=== PATIENT | male | born 1940 | race Caucasian/White ===

== ENCOUNTER 2021-05-23 01:49 | Outpatient (CLI) | payer OTHER, SELFPAY ==
--- NOTE | 2021-05-23 09:15 | DI.MRI_ITS ---
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 Both noninfused and contrast i nfused sequences were performed. IV Contrast injected was 18 cc Dotarem. COMPARISON: No exams were available for comparison FINDINGS: CEREBRAL PARENCHYMA: No evidence of intracranial hemorrhage, mass effect nor shift of midline structu re. No extraaxial fluid collections. Ventricles are not enlarged nor shifted. There is no significant focal signal abnormality in the cerebellar hemispheres nor within the og, m idbrain, and thalami. There is abundant periventricular signal abnormality which is most probably consistent with chronic s mall vessel disease. These findings do not exhibit hemorrhage, enhancement, nor abnormal focal signa l on diffusion imaging to suggest restricted diffusion. There is no evidence of significant microhem orrhages on susceptibility weighted imaging There are no ring enhancing lesions in the brain. There is no abnormal meningeal enhancement. No evidence of dural venous sinus thrombosis. PITUITARY GLAND: No mass nor parasellar abnormality. No obvious abnormality in the cavernous sinuses. FLOW VOIDS: The expected flow void are noted. No evidence of obvious aneurysm nor obvious vascular ma lformation. PARANASAL SINUSES: The visualized paranasal sinuses appear unremarkable. ORBITS: No obvious abnormal findings. IMPRESSION: 1. There is abundant bilateral periventricular signal abnormality consistent with chronic small vesse l disease. No evidence of acute infarct. 2. No evidence of ring-enhancing lesions nor abnormal meningeal enhancement in the brain, as per requ est. DATA REPOSITORY:
[2021-05-23 09:54] LABS: HCT 44.5 % (40.0-50.0); HGB 14.2 g/dL (13.5-17.5); MCH 28.1 pg (27.0-33.0); MCHC 31.9 % (32.0-36.0); MCV 87.9 fL (80-95); MPV 9.7 fL (8.0-11.0); Nucleated RBC 0 %; RBC 5.06 10^6/uL (4.36-5.78); RDW 16.5 % (11.8-14.1); RDW-SD 52.8 fL
[2021-05-23 10:00] LABS: WBC 1.91 10^3/uL (4.4-10.8)
[2021-05-23] MEDS: Normal Saline Flush 10 ML SYR IVP (10:00)
[2021-05-23] MEDS: Gadoterate meglumine 20 ML VIAL 18 ML IVP (10:01)
[2021-05-23 10:11] LABS: Absolute Neutrophil Count 0.11 10^3/uL (1.2-6.7)
[2021-05-23 10:12] LABS: Absolute Eosinophil Count 0.02 10^3/uL (0.0-0.7); Absolute Monocyte Count 0.17 10^3/uL (0.1-0.8); Atypical Lymphocytes % 20; Diff Comment Manual Differential; RBC Morphology Normal
[2021-05-23 10:19] LABS: Platelet Count 30 10^3/uL (130-400)
[2021-05-23 10:36] LABS: Calcium 9.3 mg/dL (8.5-10.1)
[2021-05-23 10:37] LABS: ALT 51 U/L (16-63); AST 35 U/L (15-37); Albumin 3.2 g/dL (3.4-5.0); Alkaline Phosphatase 72 U/L (46-116); Anion Gap 9.7 mmol/L (3-11); BUN 17 mg/dL (7-18); Bilirubin, Total 0.8 mg/dL (0.2-1.0); CO2 27.3 mmol/L (21.0-32.0); CREATININE 1.5 mg/dL (0.70-1.30); Chloride 104 mmol/L (98-107); Estimated GFR 45.26 (mL/min/1.73m2); Magnesium 2.2 mg/dL (1.8-2.4); Potassium 4.1 mmol/L (3.5-5.1); Sodium 141 mmol/L (136-145); TSH 1.44 uIU/mL (0.36-3.74)
[2021-05-23 10:38] LABS: FREE T4 1.16 ng/dL (0.76-1.46)
[2021-05-23 11:17] LABS: Glucose 126 mg/dL (74-106)
== END 2021-05-23 02:09 ==
PROVIDERS: Visit Provider Internal Medicine Medical Oncology
DX: C78.2 Secondary malignant neoplasm of pleura (principal); C34.92 Malignant neoplasm of unspecified part of left bronchus or lung; I67.89 Other cerebrovascular disease
CPT/HCPCS: 70553; 80053; 83735; 84439; 84443; 85025

== ENCOUNTER 2021-05-30 16:50 | Outpatient (REF) | payer OTHER, SELFPAY ==
[2021-05-30 11:02] LABS: Abs Immature Grans 0.01 10^3/uL (0.0-0.06); Absolute Basophil Count 0.01 10^3/uL (0.0-0.2); Absolute Eosinophil Count 0.01 10^3/uL (0.0-0.7); Absolute Lymphocyte Count 1.49 10^3/uL (1.2-3.4); Absolute Monocyte Count 0.71 10^3/uL (0.1-0.8); Basophils % 0.2; Eosinophils % 0.2; HCT 41.3 % (40.0-50.0); HGB 13.3 g/dL (13.5-17.5); Immature Grans % 0.2; MCH 27.9 pg (27.0-33.0); MCHC 32.2 % (32.0-36.0); MCV 86.8 fL (80-95); Monocytes % 17.6; Neutrophils % 44.8; Nucleated RBC 0 %; RBC 4.76 10^6/uL (4.36-5.78); RDW 16.1 % (11.8-14.1); RDW-SD 50.4 fL; WBC 4.03 10^3/uL (4.4-10.8)
[2021-05-30 11:03] LABS: Absolute Neutrophil Count 1.81 10^3/uL (1.2-6.7)
[2021-05-30 11:17] LABS: Platelet Count 59 10^3/uL (130-400)
[2021-05-30 11:34] LABS: ALT 69 U/L (16-63); AST 60 U/L (15-37); Albumin 3.3 g/dL (3.4-5.0); Alkaline Phosphatase 76 U/L (46-116); Anion Gap 8.5 mmol/L (3-11); BUN 15 mg/dL (7-18); Bilirubin, Total 0.5 mg/dL (0.2-1.0); CO2 27.5 mmol/L (21.0-32.0); CREATININE 1.1 mg/dL (0.70-1.30); Calcium 9.1 mg/dL (8.5-10.1); Chloride 104 mmol/L (98-107); FREE T4 1.08 ng/dL (0.76-1.46); Glucose 120 mg/dL (74-106); Magnesium 2.3 mg/dL (1.8-2.4); Potassium 4.2 mmol/L (3.5-5.1); Sodium 140 mmol/L (136-145); TSH 1.46 uIU/mL (0.36-3.74); Total Protein 7.2 g/dL (6.4-8.2)
== END 2021-05-30 16:51 | disposition home or self-care (01) ==
LOC: LBN 16:50
PROVIDERS: Visit Provider Internal Medicine Medical Oncology
DX: C78.2 Secondary malignant neoplasm of pleura (principal); C34.92 Malignant neoplasm of unspecified part of left bronchus or lung
CPT/HCPCS: 80053; 83735; 84439; 84443; 85025

== ENCOUNTER 2021-06-06 01:42 | Outpatient (RCR) | payer OTHER, SELFPAY ==
[2021-05-09 09:18] LABS: Abs Immature Grans 0.02 10^3/uL (0.0-0.06); Absolute Basophil Count 0.02 10^3/uL (0.0-0.2); Absolute Eosinophil Count 0.03 10^3/uL (0.0-0.7); Absolute Lymphocyte Count 1.74 10^3/uL (1.2-3.4); Absolute Monocyte Count 0.58 10^3/uL (0.1-0.8); Absolute Neutrophil Count 5.34 10^3/uL (1.2-6.7); Basophils % 0.3; Eosinophils % 0.4; HCT 48.1 % (40.0-50.0); HGB 14.9 g/dL (13.5-17.5); Immature Grans % 0.3; Lymphocytes % 22.5; MCH 27.4 pg (27.0-33.0); MCV 88.6 fL (80-95); Monocytes % 7.5; Nucleated RBC 0 %; Platelet Count 126 10^3/uL (130-400); RBC 5.43 10^6/uL (4.36-5.78); RDW 18.3 % (11.8-14.1); RDW-SD 56.5 fL; WBC 7.73 10^3/uL (4.4-10.8)
[2021-05-09 09:42] LABS: ALT 105 U/L (16-63); AST 69 U/L (15-37); Albumin 3.4 g/dL (3.4-5.0); Alkaline Phosphatase 69 U/L (46-116); Anion Gap 11.1 mmol/L (3-11); BUN 21 mg/dL (7-18); Bilirubin, Total 0.6 mg/dL (0.2-1.0); CO2 24.9 mmol/L (21.0-32.0); CREATININE 1.2 mg/dL (0.70-1.30); Calcium 9.2 mg/dL (8.5-10.1); Chloride 106 mmol/L (98-107); Estimated GFR 58.56 (mL/min/1.73m2); FREE T4 0.95 ng/dL (0.76-1.46); Glucose 215 mg/dL (74-106); Magnesium 2.2 mg/dL (1.8-2.4); Potassium 3.8 mmol/L (3.5-5.1); Sodium 142 mmol/L (136-145); TSH 2.12 uIU/mL (0.36-3.74); Total Protein 7.8 g/dL (6.4-8.2)
[2021-05-10 10:20] LABS: Hepatitis B Surface Ag Negative (Negative)
[2021-05-10 10:41] LABS: HBs Antibody, Quant 4.5 mIU/mL (See Note); Hepatitis B Surface Ab Negative (See Note)
[2021-05-10 11:29] LABS: Hepatitis C Ab w Rflx HCV PCR Negative (Negative)
[2021-06-06 14:05] LABS: Abs Immature Grans 0.03 10^3/uL (0.0-0.06); Absolute Basophil Count 0.04 10^3/uL (0.0-0.2); Absolute Lymphocyte Count 2.68 10^3/uL (1.2-3.4); Absolute Monocyte Count 1.17 10^3/uL (0.1-0.8); Absolute Neutrophil Count 2.47 10^3/uL (1.2-6.7); Basophils % 0.6; HCT 44.5 % (40.0-50.0); HGB 13.6 g/dL (13.5-17.5); Immature Grans % 0.5; Lymphocytes % 41.9; MCH 27.3 pg (27.0-33.0); MCHC 30.6 % (32.0-36.0); MCV 89.2 fL (80-95); MPV 9.6 fL (8.0-11.0); Monocytes % 18.3; Neutrophils % 38.7; Nucleated RBC 0 %; Platelet Count 130 10^3/uL (130-400); RBC 4.99 10^6/uL (4.36-5.78); RDW 17.2 % (11.8-14.1); WBC 6.39 10^3/uL (4.4-10.8)
[2021-06-06 14:38] LABS: ALT 72 U/L (16-63); AST 55 U/L (15-37); Albumin 3.7 g/dL (3.4-5.0); Alkaline Phosphatase 74 U/L (46-116); Anion Gap 11.4 mmol/L (3-11); BUN 15 mg/dL (7-18); Bilirubin, Total 0.5 mg/dL (0.2-1.0); CO2 24.6 mmol/L (21.0-32.0); CREATININE 1.2 mg/dL (0.70-1.30); Calcium 9.4 mg/dL (8.5-10.1); Chloride 104 mmol/L (98-107); Estimated GFR 58.56 (mL/min/1.73m2); FREE T4 0.98 ng/dL (0.76-1.46); Glucose 106 mg/dL (74-106); Magnesium 2.1 mg/dL (1.8-2.4); Sodium 140 mmol/L (136-145); TSH 1.99 uIU/mL (0.36-3.74); Total Protein 8.4 g/dL (6.4-8.2)
== END 2021-06-07 23:59 | disposition home or self-care (01) ==
LOC: INF 01:42
PROVIDERS: Visit Provider Internal Medicine Medical Oncology
DX: C78.2 Secondary malignant neoplasm of pleura (principal); C34.92 Malignant neoplasm of unspecified part of left bronchus or lung
CPT/HCPCS: 36415; 80053; 86706; 86803; 87340; 83735; 84439; 84443; 85025

== ENCOUNTER 2021-06-27 13:19 | Outpatient (REF) | payer OTHER, SELFPAY ==
[2021-06-27 10:32] LABS: Abs Immature Grans 0.05 10^3/uL (0.0-0.06); Absolute Basophil Count 0.02 10^3/uL (0.0-0.2); Absolute Eosinophil Count 0.01 10^3/uL (0.0-0.7); Absolute Monocyte Count 0.89 10^3/uL (0.1-0.8); Absolute Neutrophil Count 2.58 10^3/uL (1.2-6.7); Basophils % 0.4; Eosinophils % 0.2; HCT 37.5 % (40.0-50.0); Immature Grans % 0.9; Lymphocytes % 33.6; MCH 28.3 pg (27.0-33.0); MCV 88.4 fL (80-95); MPV 10.3 fL (8.0-11.0); Monocytes % 16.6; Neutrophils % 48.3; Nucleated RBC 0 %; RBC 4.24 10^6/uL (4.36-5.78); RDW 17.9 % (11.8-14.1); RDW-SD 55.8 fL; WBC 5.35 10^3/uL (4.4-10.8)
[2021-06-27 10:41] LABS: Platelet Count 67 10^3/uL (130-400)
[2021-06-27 10:56] LABS: ALT 54 U/L (16-63); AST 43 U/L (15-37); Albumin 3.4 g/dL (3.4-5.0); Alkaline Phosphatase 70 U/L (46-116); Anion Gap 8.7 mmol/L (3-11); BUN 12 mg/dL (7-18); Bilirubin, Total 0.4 mg/dL (0.2-1.0); CO2 27.3 mmol/L (21.0-32.0); CREATININE 1.1 mg/dL (0.70-1.30); Calcium 9.1 mg/dL (8.5-10.1); Chloride 104 mmol/L (98-107); FREE T4 0.96 ng/dL (0.76-1.46); Glucose 118 mg/dL (74-106); Magnesium 2.1 mg/dL (1.8-2.4); Potassium 4.2 mmol/L (3.5-5.1); Sodium 140 mmol/L (136-145); TSH 0.88 uIU/mL (0.36-3.74); Total Protein 7.5 g/dL (6.4-8.2)
== END 2021-06-27 13:20 | disposition home or self-care (01) ==
LOC: LBN 13:19
PROVIDERS: Visit Provider Internal Medicine Medical Oncology
DX: C34.92 Malignant neoplasm of unspecified part of left bronchus or lung (principal); C78.2 Secondary malignant neoplasm of pleura
CPT/HCPCS: 80053; 83735; 84439; 84443; 85025

== ENCOUNTER 2021-07-04 03:28 | Outpatient (RCR) | payer OTHER, SELFPAY ==
[2021-07-04 08:56] LABS: Abs Immature Grans 0.01 10^3/uL (0.0-0.06); Absolute Basophil Count 0.03 10^3/uL (0.0-0.2); Absolute Eosinophil Count 0.01 10^3/uL (0.0-0.7); Absolute Monocyte Count 0.76 10^3/uL (0.1-0.8); Absolute Neutrophil Count 2.81 10^3/uL (1.2-6.7); Basophils % 0.5; Eosinophils % 0.2; HCT 39.3 % (40.0-50.0); HGB 12.3 g/dL (13.5-17.5); Immature Grans % 0.2; Lymphocytes % 36.7; MCHC 31.3 % (32.0-36.0); MCV 89.5 fL (80-95); MPV 9.7 fL (8.0-11.0); Monocytes % 13.3; Neutrophils % 49.1; Nucleated RBC 0 %; Platelet Count 104 10^3/uL (130-400); RBC 4.39 10^6/uL (4.36-5.78); RDW 18.6 % (11.8-14.1); RDW-SD 59.1 fL; WBC 5.72 10^3/uL (4.4-10.8)
[2021-07-04 09:16] LABS: ALT 51 U/L (16-63); AST 42 U/L (15-37); Albumin 3.4 g/dL (3.4-5.0); Alkaline Phosphatase 70 U/L (46-116); Anion Gap 15.2 mmol/L (3-11); BUN 11 mg/dL (7-18); Bilirubin, Total 0.5 mg/dL (0.2-1.0); CO2 19.8 mmol/L (21.0-32.0); CREATININE 1.3 mg/dL (0.70-1.30); Chloride 102 mmol/L (98-107); Estimated GFR 53.39 (mL/min/1.73m2); Glucose 201 mg/dL (74-106); Magnesium 2.2 mg/dL (1.8-2.4); Potassium 3.7 mmol/L (3.5-5.1); Sodium 137 mmol/L (136-145); TSH 1.36 uIU/mL (0.36-3.74); Total Protein 7.8 g/dL (6.4-8.2)
== END 2021-07-08 23:59 | disposition home or self-care (01) ==
LOC: INF 03:28
PROVIDERS: Visit Provider Internal Medicine Medical Oncology
DX: C78.2 Secondary malignant neoplasm of pleura (principal); C34.92 Malignant neoplasm of unspecified part of left bronchus or lung
CPT/HCPCS: 36415; 80053; 83735; 84439; 84443; 85025

== ENCOUNTER 2021-08-08 01:14 | Outpatient (RCR) | payer OTHER, SELFPAY ==
[2021-07-27 08:10] LABS: Abs Immature Grans 0.02 10^3/uL (0.0-0.06); Absolute Basophil Count 0.02 10^3/uL (0.0-0.2); Absolute Eosinophil Count 0.02 10^3/uL (0.0-0.7); Absolute Lymphocyte Count 2.04 10^3/uL (1.2-3.4); Absolute Monocyte Count 0.66 10^3/uL (0.1-0.8); Absolute Neutrophil Count 1.96 10^3/uL (1.2-6.7); Basophils % 0.4; Eosinophils % 0.4; HCT 37.4 % (40.0-50.0); HGB 11.4 g/dL (13.5-17.5); Immature Grans % 0.4; Lymphocytes % 43.2; MCH 28.4 pg (27.0-33.0); MCHC 30.5 % (32.0-36.0); MPV 10.8 fL (8.0-11.0); Neutrophils % 41.6; Nucleated RBC 0 %; RBC 4.02 10^6/uL (4.36-5.78); RDW 20.1 % (11.8-14.1); RDW-SD 66.5 fL; WBC 4.72 10^3/uL (4.4-10.8)
[2021-07-27 08:27] LABS: Anisocytosis 2+; Diff Comment Diff Reviewed; Platelet Count 48 10^3/uL (130-400); Polychromasia Present
[2021-07-27 08:28] LABS: Poikilocytes 1+
[2021-07-27 08:30] LABS: ALT 56 U/L (16-63); AST 49 U/L (15-37); Albumin 3.4 g/dL (3.4-5.0); Alkaline Phosphatase 78 U/L (46-116); Anion Gap 11.6 mmol/L (3-11); BUN 15 mg/dL (7-18); Bilirubin, Total 0.5 mg/dL (0.2-1.0); CO2 24.4 mmol/L (21.0-32.0); CREATININE 1.3 mg/dL (0.70-1.30); Calcium 9.1 mg/dL (8.5-10.1); Chloride 104 mmol/L (98-107); Estimated GFR 53.39 (mL/min/1.73m2); FREE T4 0.86 ng/dL (0.76-1.46); Glucose 225 mg/dL (74-106); Magnesium 1.8 mg/dL (1.8-2.4); Sodium 140 mmol/L (136-145); TSH 1.06 uIU/mL (0.36-3.74); Total Protein 7.6 g/dL (6.4-8.2)
[2021-08-08 08:33] LABS: Abs Immature Grans 0.01 10^3/uL (0.0-0.06); Absolute Basophil Count 0.01 10^3/uL (0.0-0.2); Absolute Eosinophil Count 0.06 10^3/uL (0.0-0.7); Absolute Lymphocyte Count 1.78 10^3/uL (1.2-3.4); Absolute Monocyte Count 0.91 10^3/uL (0.1-0.8); Absolute Neutrophil Count 2.22 10^3/uL (1.2-6.7); Basophils % 0.2; Eosinophils % 1.2; HCT 37.6 % (40.0-50.0); HGB 11.5 g/dL (13.5-17.5); Immature Grans % 0.2; Lymphocytes % 35.7; MCHC 30.6 % (32.0-36.0); MCV 94.9 fL (80-95); MPV 10.6 fL (8.0-11.0); Monocytes % 18.2; Neutrophils % 44.5; Nucleated RBC 0 %; RBC 3.96 10^6/uL (4.36-5.78); RDW 21.2 % (11.8-14.1); RDW-SD 73.4 fL; WBC 4.99 10^3/uL (4.4-10.8)
[2021-08-08 08:52] LABS: Anisocytosis 2+; Diff Comment Diff Reviewed; Platelet Count 79 10^3/uL (130-400); Polychromasia Present
[2021-08-08 08:53] LABS: Poikilocytes 1+
[2021-08-08 09:05] LABS: ALT 49 U/L (16-63); AST 45 U/L (15-37); Albumin 3.6 g/dL (3.4-5.0); Alkaline Phosphatase 72 U/L (46-116); Anion Gap 12.4 mmol/L (3-11); BUN 15 mg/dL (7-18); Bilirubin, Total 0.6 mg/dL (0.2-1.0); CO2 22.6 mmol/L (21.0-32.0); CREATININE 1.1 mg/dL (0.70-1.30); Calcium 9.2 mg/dL (8.5-10.1); Chloride 103 mmol/L (98-107); FREE T4 0.95 ng/dL (0.76-1.46); Glucose 114 mg/dL (74-106); Magnesium 1.8 mg/dL (1.8-2.4); Potassium 4.4 mmol/L (3.5-5.1); Sodium 138 mmol/L (136-145); TSH 1.29 uIU/mL (0.36-3.74)
== END 2021-08-08 23:59 | disposition home or self-care (01) ==
LOC: INF 01:14
PROVIDERS: Visit Provider Internal Medicine Medical Oncology
DX: C34.92 Malignant neoplasm of unspecified part of left bronchus or lung (principal); C78.2 Secondary malignant neoplasm of pleura
CPT/HCPCS: 36415; 80053; 83735; 84439; 84443; 85025

== ENCOUNTER 2021-08-29 02:01 | Outpatient (RCR) | payer OTHER, SELFPAY ==
[2021-08-29 09:15] LABS: Abs Immature Grans 0.01 10^3/uL (0.0-0.06); Absolute Basophil Count 0.02 10^3/uL (0.0-0.2); Absolute Eosinophil Count 0.12 10^3/uL (0.0-0.7); Absolute Lymphocyte Count 1.63 10^3/uL (1.2-3.4); Absolute Monocyte Count 0.44 10^3/uL (0.1-0.8); Absolute Neutrophil Count 2.45 10^3/uL (1.2-6.7); Basophils % 0.4; Eosinophils % 2.6; HCT 39.9 % (40.0-50.0); HGB 12.2 g/dL (13.5-17.5); Immature Grans % 0.2; Lymphocytes % 34.9; MCH 29.3 pg (27.0-33.0); MCHC 30.6 % (32.0-36.0); MCV 95.7 fL (80-95); MPV 10.5 fL (8.0-11.0); Monocytes % 9.4; Neutrophils % 52.5; Nucleated RBC 0 %; RBC 4.17 10^6/uL (4.36-5.78); RDW-SD 66.8 fL; WBC 4.67 10^3/uL (4.4-10.8)
[2021-08-29 09:32] LABS: Diff Comment Diff Reviewed; Platelet Count 91 10^3/uL (130-400)
[2021-08-29 09:33] LABS: Poikilocytes 1+
[2021-08-29 09:39] LABS: ALT 54 U/L (16-63); AST 50 U/L (15-37); Albumin 3.6 g/dL (3.4-5.0); Alkaline Phosphatase 75 U/L (46-116); Anion Gap 11.9 mmol/L (3-11); BUN 14 mg/dL (7-18); Bilirubin, Total 0.6 mg/dL (0.2-1.0); CO2 23.1 mmol/L (21.0-32.0); CREATININE 1.3 mg/dL (0.70-1.30); Calcium 9.4 mg/dL (8.5-10.1); Chloride 104 mmol/L (98-107); Estimated GFR 53.39 (mL/min/1.73m2); FREE T4 0.81 ng/dL (0.76-1.46); Glucose 176 mg/dL (74-106); Magnesium 2.1 mg/dL (1.8-2.4); Sodium 139 mmol/L (136-145); TSH 2.36 uIU/mL (0.36-3.74)
== END 2021-09-05 23:59 | disposition home or self-care (01) ==
LOC: INF 02:01
PROVIDERS: Visit Provider Internal Medicine Medical Oncology
DX: C78.2 Secondary malignant neoplasm of pleura (principal); C34.92 Malignant neoplasm of unspecified part of left bronchus or lung
CPT/HCPCS: 36415; 80053; 83735; 84439; 84443; 85025

== ENCOUNTER 2021-09-26 08:13 | Outpatient (RCR) | payer OTHER, SELFPAY ==
[2021-09-26 08:38] LABS: Abs Immature Grans 0.01 10^3/uL (0.0-0.06); Absolute Basophil Count 0.03 10^3/uL (0.0-0.2); Absolute Eosinophil Count 0.09 10^3/uL (0.0-0.7); Absolute Lymphocyte Count 2.14 10^3/uL (1.2-3.4); Absolute Monocyte Count 0.76 10^3/uL (0.1-0.8); Absolute Neutrophil Count 3.42 10^3/uL (1.2-6.7); Basophils % 0.5; Eosinophils % 1.4; HCT 43.7 % (40.0-50.0); HGB 13.5 g/dL (13.5-17.5); Immature Grans % 0.2; Lymphocytes % 33.2; MCH 29.3 pg (27.0-33.0); MCHC 30.9 % (32.0-36.0); MCV 94.8 fL (80-95); MPV 10.2 fL (8.0-11.0); Monocytes % 11.8; Neutrophils % 52.9; Nucleated RBC 0 %; RBC 4.61 10^6/uL (4.36-5.78); RDW 15.9 % (11.8-14.1); WBC 6.45 10^3/uL (4.4-10.8)
[2021-09-26 08:50] LABS: Platelet Count 89 10^3/uL (130-400)
[2021-09-26 09:05] LABS: ALT 50 U/L (16-63); AST 38 U/L (15-37); Albumin 3.9 g/dL (3.4-5.0); Alkaline Phosphatase 80 U/L (46-116); Anion Gap 9.3 mmol/L (3-11); BUN 20 mg/dL (7-18); Bilirubin, Total 0.6 mg/dL (0.2-1.0); CO2 25.7 mmol/L (21.0-32.0); CREATININE 1.3 mg/dL (0.70-1.30); Calcium 9.6 mg/dL (8.5-10.1); Chloride 104 mmol/L (98-107); Estimated GFR 53.25 (mL/min/1.73m2); Glucose 119 mg/dL (74-106); Magnesium 2.1 mg/dL (1.8-2.4); Potassium 4.2 mmol/L (3.5-5.1); Sodium 139 mmol/L (136-145); TSH 1.22 uIU/mL (0.36-3.74); Total Protein 8.3 g/dL (6.4-8.2)
== END 2021-10-06 23:59 | disposition home or self-care (01) ==
LOC: INF 08:13
PROVIDERS: Visit Provider Internal Medicine Medical Oncology
DX: C78.2 Secondary malignant neoplasm of pleura (principal); C34.92 Malignant neoplasm of unspecified part of left bronchus or lung
CPT/HCPCS: 36415; 80053; 83735; 84439; 84443; 85025

== ENCOUNTER 2021-10-31 04:12 | Outpatient (RCR) | payer OTHER, SELFPAY ==
[2021-10-10 12:05] LABS: Abs Immature Grans 0.01 10^3/uL (0.0-0.06); Absolute Basophil Count 0.03 10^3/uL (0.0-0.2); Absolute Eosinophil Count 0.07 10^3/uL (0.0-0.7); Absolute Lymphocyte Count 1.38 10^3/uL (1.2-3.4); Absolute Monocyte Count 0.45 10^3/uL (0.1-0.8); Absolute Neutrophil Count 3.74 10^3/uL (1.2-6.7); Basophils % 0.5; Eosinophils % 1.2; HCT 41.1 % (40.0-50.0); Immature Grans % 0.2; Lymphocytes % 24.3; MCH 29.4 pg (27.0-33.0); MCHC 31.6 % (32.0-36.0); Monocytes % 7.9; Neutrophils % 65.9; Nucleated RBC 0 %; RBC 4.42 10^6/uL (4.36-5.78); RDW 15.6 % (11.8-14.1); RDW-SD 53.5 fL; WBC 5.68 10^3/uL (4.4-10.8)
[2021-10-10 12:22] LABS: Platelet Count 87 10^3/uL (130-400)
[2021-10-10 12:32] LABS: ALT 52 U/L (16-63); AST 41 U/L (15-37); Albumin 3.6 g/dL (3.4-5.0); Alkaline Phosphatase 75 U/L (46-116); BUN 14 mg/dL (7-18); Bilirubin, Total 0.5 mg/dL (0.2-1.0); CREATININE 1.2 mg/dL (0.70-1.30); Chloride 102 mmol/L (98-107); FREE T4 0.93 ng/dL (0.76-1.46); Glucose 195 mg/dL (74-106); Magnesium 1.9 mg/dL (1.8-2.4); Potassium 3.8 mmol/L (3.5-5.1); Sodium 136 mmol/L (136-145); TSH 1.04 uIU/mL (0.36-3.74); Total Protein 7.7 g/dL (6.4-8.2)
[2021-10-10 12:46] LABS: Calcium 9.2 mg/dL (8.5-10.1)
[2021-10-31 10:16] LABS: Abs Immature Grans 0.01 10^3/uL (0.0-0.06); Absolute Basophil Count 0.01 10^3/uL (0.0-0.2); Absolute Eosinophil Count 0.03 10^3/uL (0.0-0.7); Absolute Lymphocyte Count 1.43 10^3/uL (1.2-3.4); Absolute Monocyte Count 0.73 10^3/uL (0.1-0.8); Absolute Neutrophil Count 2.16 10^3/uL (1.2-6.7); Basophils % 0.2; Eosinophils % 0.7; HCT 40.9 % (40.0-50.0); HGB 12.9 g/dL (13.5-17.5); Immature Grans % 0.2; Lymphocytes % 32.7; MCHC 31.5 % (32.0-36.0); MCV 91.9 fL (80-95); MPV 9.5 fL (8.0-11.0); Monocytes % 16.7; Neutrophils % 49.5; Platelet Count 51 10^3/uL (130-400); RBC 4.45 10^6/uL (4.36-5.78); RDW 15.8 % (11.8-14.1); RDW-SD 52.6 fL; WBC 4.37 10^3/uL (4.4-10.8)
[2021-10-31 10:36] LABS: ALT 55 U/L (16-63); AST 49 U/L (15-37); Albumin 3.4 g/dL (3.4-5.0); Alkaline Phosphatase 86 U/L (46-116); Anion Gap 7.7 mmol/L (3-11); BUN 17 mg/dL (7-18); Bilirubin, Total 0.6 mg/dL (0.2-1.0); CO2 27.3 mmol/L (21.0-32.0); CREATININE 1.4 mg/dL (0.70-1.30); Calcium 9.4 mg/dL (8.5-10.1); Chloride 102 mmol/L (98-107); Estimated GFR 48.89 (mL/min/1.73m2); FREE T4 0.86 ng/dL (0.76-1.46); Glucose 140 mg/dL (74-106); Magnesium 2.2 mg/dL (1.8-2.4); Potassium 3.9 mmol/L (3.5-5.1); Sodium 137 mmol/L (136-145); TSH 0.96 uIU/mL (0.36-3.74); Total Protein 7.7 g/dL (6.4-8.2)
== END 2021-11-05 23:59 | disposition home or self-care (01) ==
LOC: INF 04:12
PROVIDERS: Visit Provider Internal Medicine Medical Oncology
DX: C78.2 Secondary malignant neoplasm of pleura (principal); C34.92 Malignant neoplasm of unspecified part of left bronchus or lung
CPT/HCPCS: 36415; 80053; 83735; 84439; 84443; 85025

== ENCOUNTER → 2021-11-17 13:01 | Outpatient (CLI) | payer OTHER, SELFPAY ==
--- NOTE | 2021-11-17 13:53 | DI.RAD_ITS ---
Exam(s) XR CHEST 2V PA LATERAL EXAM: XR CHEST 2V PA LATERAL CLINICAL HISTORY: LUNG CA, C34.92, NEW DYSPNEA AND RIGHT-SIDED CHEST DISCOMFORT, ? PNEUMONIA TECHNIQUE: COMPARISON: CT CT CHEST W from 06/17/[address] CHEST/ABD/PEL W from 08/15/2021 FINDINGS: The heart is not enlarged. There is pleural blunting at the lung bases bilaterally, more prominent o n the right than on prior CT examination of August 15. Additionally, there are areas of increased radiodensity in the right mid lung and right lung base, I am uncertain whether these represent pleur al fluid or intrapulmonary areas of consolidation. Additional evaluation with chest CT recommended to assess intrapulmonary versus pleural changes. IMPRESSION: RADIATION DOSE DELIVERED: Total DLP
== END ==
PROVIDERS: Visit Provider Internal Medicine Medical Oncology
DX: C34.92 Malignant neoplasm of unspecified part of left bronchus or lung (principal); R06.09 Other forms of dyspnea; R07.89 Other chest pain; R91.8 Other nonspecific abnormal finding of lung field; Z86.16 Personal history of COVID-19
CPT/HCPCS: 71046

== ENCOUNTER 2021-11-21 12:45 | Outpatient (RCR) | payer OTHER, SELFPAY ==
[2021-11-21 13:13] LABS: Abs Immature Grans 0.02 10^3/uL (0.0-0.06); Absolute Basophil Count 0.02 10^3/uL (0.0-0.2); Absolute Eosinophil Count 0.11 10^3/uL (0.0-0.7); Absolute Lymphocyte Count 1.14 10^3/uL (1.2-3.4); Absolute Monocyte Count 0.87 10^3/uL (0.1-0.8); Absolute Neutrophil Count 2.92 10^3/uL (1.2-6.7); Basophils % 0.4; Eosinophils % 2.2; HCT 34.6 % (40.0-50.0); HGB 10.7 g/dL (13.5-17.5); Immature Grans % 0.4; Lymphocytes % 22.4; MCH 28.2 pg (27.0-33.0); MCHC 30.9 % (32.0-36.0); MCV 91 fL (80-95); MPV 10.3 fL (8.0-11.0); Monocytes % 17.1; Neutrophils % 57.5; Platelet Count 96 10^3/uL (130-400); RDW 16.6 % (11.8-14.1); RDW-SD 55.5 fL; WBC 5.08 10^3/uL (4.4-10.8)
[2021-11-21 13:40] LABS: ALT 36 U/L (16-63); AST 29 U/L (15-37); Albumin 2.9 g/dL (3.4-5.0); Alkaline Phosphatase 71 U/L (46-116); Anion Gap 10.2 mmol/L (3-11); BUN 15 mg/dL (7-18); Bilirubin, Total 0.6 mg/dL (0.2-1.0); CO2 25.8 mmol/L (21.0-32.0); CREATININE 1.2 mg/dL (0.70-1.30); Calcium 8.9 mg/dL (8.5-10.1); Chloride 103 mmol/L (98-107); FREE T4 1.04 ng/dL (0.76-1.46); Glucose 102 mg/dL (74-106); Potassium 3.8 mmol/L (3.5-5.1); Sodium 139 mmol/L (136-145); TSH 1.07 uIU/mL (0.36-3.74); Total Protein 7.9 g/dL (6.4-8.2)
== END 2021-12-06 23:59 | disposition home or self-care (01) ==
LOC: INF 12:45
PROVIDERS: Visit Provider Internal Medicine Medical Oncology
DX: C78.2 Secondary malignant neoplasm of pleura (principal); C34.92 Malignant neoplasm of unspecified part of left bronchus or lung
CPT/HCPCS: 36415; 80053; 84439; 84443; 85025

== ENCOUNTER 2021-11-26 15:02 | Emergency (ER) | payer OTHER, SELFPAY ==
[2021-11-26 15:45] VITALS: BP 126/62; PULSE 99; RESP 16; TEMP 36.8; O2SAT 94
[2021-11-26 15:54] VITALS: RESP 18
[2021-11-26 16:29] LABS: Abs Immature Grans 0.02 10^3/uL (0.0-0.06); Absolute Basophil Count 0.01 10^3/uL (0.0-0.2); Absolute Eosinophil Count 0.04 10^3/uL (0.0-0.7); Absolute Lymphocyte Count 1.23 10^3/uL (1.2-3.4); Absolute Monocyte Count 0.07 10^3/uL (0.1-0.8); Absolute Neutrophil Count 3.23 10^3/uL (1.2-6.7); Basophils % 0.2; Eosinophils % 0.9; HCT 33.4 % (40.0-50.0); HGB 10.5 g/dL (13.5-17.5); Immature Grans % 0.4; Lymphocytes % 26.7; MCH 28.1 pg (27.0-33.0); MCHC 31.4 % (32.0-36.0); MCV 89 fL (80-95); MPV 9.4 fL (8.0-11.0); Monocytes % 1.5; Neutrophils % 70.3; Platelet Count 57 10^3/uL (130-400); RBC 3.74 10^6/uL (4.36-5.78); RDW 16.7 % (11.8-14.1); RDW-SD 54.4 fL
[2021-11-26] MEDS: Ondansetron 4 MG/2 ML VIAL IVP (16:30)
[2021-11-26 16:47] LABS: ALT 44 U/L (16-63); AST 42 U/L (15-37); Albumin 2.9 g/dL (3.4-5.0); Alkaline Phosphatase 71 U/L (46-116); Anion Gap 11.1 mmol/L (3-11); BUN 18 mg/dL (7-18); Bilirubin, Total 0.8 mg/dL (0.2-1.0); CO2 21.9 mmol/L (21.0-32.0); CREATININE 1.2 mg/dL (0.70-1.30); Chloride 102 mmol/L (98-107); Glucose 115 mg/dL (74-106); Magnesium 2.3 mg/dL (1.8-2.4); Potassium 4.2 mmol/L (3.5-5.1); Sodium 135 mmol/L (136-145); Total Protein 8.1 g/dL (6.4-8.2)
[2021-11-26 16:48] LABS: Lipase 69 U/L (73-393)
[2021-11-26] MEDS: Normal Saline 1,000 ML 1000 ML IV (17:28)
[2021-11-26] MEDS: Doxycycline Hyclate 100 MG CAP 200 MG PO (18:47)
--- NOTE | 2021-11-26 19:45 | ED.GENADUL_ITS ---
Discharge Plan Disposition Patient Disposition: HOME Condition: Improving Discharge Details Clinical Impression: Nausea & vomiting Primary Care Provider: Rhonda,Local ED Provider: Riaz Quiñonez Home Meds and New Rx's Prescriptions: New ondansetron 4 mg tablet,disintegrating 4 mg PO Q6H PRN (Reason: nausea and vomiting) Qty: 14 0RF Continued isosorbide mononitrate 30 mg Tablet Extended Release 24 Hr 30 mg PO DAILY AM metoprolol succinate 25 mg Tablet Extended Release 24 Hr 25 mg PO DAILY AM rosuvastatin 40 mg Tablet 40 mg PO DAILY prochlorperazine maleate [Compazine] 10 mg Tablet 10 mg PO PRN PRN aspirin 81 mg Tablet 81 mg PO DAILY AM Discharge Instructions Instructions: Acute Nausea and Vomiting (ED) Additional Instructions: At this time we are still pending outpatient stool specimen studies. Your nausea vomiting and diarrhea may be due to the recent antibiotics you are on or the new chemo treatments you have started. It is very important to stay well- hydrated and take antinausea medication as soon as you feel nauseous. If you have any new or worsening symptoms, fever that is persistent, or further concerns please return immediately to the emergency department for reassessment. Otherwise follow-up with your primary care provider or oncologist for further discussion if your symptoms do not improve. Referrals: Primary Care Provider [Outside] - 5 days (If not improving) Discharge Data Discharge Date/Time-TO BE ENTERED AT DEPARTURE: 11/26/21 20:11 Medical Decision Making Patient presenting to the emergency department for chief complaint of nausea vomiting and some intermittent diarrhea. Patient has been undergoing chemotherapy for lung cancer and denies any new respiratory complaint but does state that they recently changed his chemotherapy and had second new chemo 5 days ago and nausea vomiting started yesterday. States some chills but denies any persistent fever, does state low appetite. Physical exam is unremarkable for any acute surgical abdominal findings we will check patient's labs and given that patient recently was on antibiotics we will also order stool specimens for work-up of C. difficile. Will give patient 1 L of IV fluids and antiemetic pending results. Review of labs show a mild anemia at patient's baseline from previous labs, CMP shows a slight decrease in sodium, mildly elevated anion gap and AST of 42, albumin of 2.9 otherwise unremarkable. Patient was unable to provide a stool specimen but was able to pass p.o. challenge and both ate and drink food and stated significant improvement in symptoms. Suspect most likely cause is from patient's recent chemotherapy but would still like to obtain stool specimen. Patient given outpatient order slip and information of how to provide lab with stool specimen. Close monitoring of symptoms along with return and follow-up precautions were discussed. Lab Data Lab results reviewed: Yes I reviewed the patient's lab results. Labs: 11/26/21 16:22 Stool Lactoferrin Latex Agglutination - Pending Laboratory Tests Range/Units 11/26/21 11/26/21 11/26/21 16:17 16:17 16:17 WBC (4.4-10.8) 10^3/uL 4.60 RBC (4.36-5.78) 10^6/uL 3.74 L Hgb (13.5-17.5) g/dL 10.5 L Hct (40.0-50.0) % 33.4 L MCV (80-95) fL 89 MCH (27.0-33.0) pg 28.1 MCHC (32.0-36.0) % 31.4 L RDW (11.8-14.1) % 16.7 H Plt Count (130-400) 10^3/uL 57 L MPV (8.0-11.0) fL 9.4 Immature Gran % 0.4 Neutrophils % 70.3 Lymphocytes % 26.7 Monocytes % 1.5 Eosinophils % 0.9 Basophils % 0.2 Nucleated RBC % (0.0-0.3) % 0.0 Absolute Neutrophils (1.2-6.7) 10^3/uL 3.23 Absolute Lymphocytes (1.2-3.4) 10^3/uL 1.23 Absolute Monocytes (0.1-0.8) 10^3/uL 0.07 L Absolute Eosinophils (0.0-0.7) 10^3/uL 0.04 Absolute Basophils (0.0-0.2) 10^3/uL 0.01 Sodium (136-145) mmol/L 135 L Potassium (3.5-5.1) mmol/L 4.2 Chloride (98-107) mmol/L 102 Carbon Dioxide (21.0-32.0) mmol/L 21.9 Anion Gap (3-11) mmol/L 11.1 H BUN (7-18) mg/dL 18 Creatinine (0.70-1.30) mg/dL 1.2 Estimated GFR/1.73 m2 (mL/min/1.73m2) 58.40 Glucose (74-106) mg/dL 115 H Calcium (8.5-10.1) mg/dL 9.0 Magnesium (1.8-2.4) mg/dL 2.3 Total Bilirubin (0.2-1.0) mg/dL 0.8 AST (15-37) U/L 42 H ALT (16-63) U/L 44 Alkaline Phosphatase (46-116) U/L 71 Total Protein (6.4-8.2) g/dL 8.1 Albumin (3.4-5.0) g/dL 2.9 L Lipase (73-393) U/L 69 HPI General Date/Time Provider Initiated Documentation: 11/26/21 15:49 . Related Data Home Medications Medication Instructions Recorded Confirmed aspirin 81 mg tablet 81 mg PO DAILY AM 11/26/21 11/26/21 isosorbide mononitrate 30 mg 30 mg PO DAILY AM 11/26/21 11/26/21 tablet,extended release 24 hr metoprolol succinate 25 mg 25 mg PO DAILY AM 11/26/21 11/26/21 tablet,extended release 24 hr ondansetron 4 mg disintegrating 4 mg PO Q6H PRN nausea and 11/26/21 tablet vomiting #14 tabs prochlorperazine maleate 10 mg 10 mg PO PRN PRN 11/26/21 11/26/21 tablet (Compazine) rosuvastatin 40 mg tablet 40 mg PO DAILY 11/26/21 11/26/21 Previous Rx's Medication Instructions Recorded ondansetron 4 mg disintegrating 4 mg PO Q6H PRN nausea and 11/26/21 tablet vomiting #14 tabs Allergies Allergy/AdvReac Type Severity Reaction Status Date / Time No Known Allergies Allergy Unverified 11/26/21 15:49 General Stated Complaint: [employer]Medical MARIA FERNANDA: 3 PFSH All Active Problems (Updated 11/26/21 @ 19:46 by Riaz Quiñonez NP) Nausea & vomiting (Acute) Social History Smoking/Tobacco Use Status: Former Tobacco Use Smoking risk assessment performed?: Yes Alcohol Intake: former Substance use type: does not use Do you feel safe at home: Yes Do you feel safe in your relationship?: Yes Additional Social history: lives with his spouse Course Vital Signs Vital signs: Vital Signs Temperature 36.8 C 11/26/21 15:45 Pulse 99 H 11/26/21 15:45 Respiratory Rate 16 11/26/21 15:45 Blood Pressure 126/62 11/26/21 15:45 Pulse Oximetry 94 11/26/21 15:45 Temperature 36.8 C 11/26/21 15:45 Temperature Source Oral 11/26/21 15:45 Pulse 99 H 11/26/21 15:45 Respiratory Rate 18 11/26/21 15:54 Respiratory Effort 11/26/21 15:54 Respiratory Depth Normal 11/26/21 15:54 Respiratory Pattern Normal 11/26/21 15:54 Blood Pressure 126/62 11/26/21 15:45 Pulse Oximetry 94 11/26/21 15:45 Oxygen Delivery Method Room Air 11/26/21 15:45 Oxygen Flow Rate 0 11/26/21 15:45 Lab/Test Results Lab/Test Results: 11/26/21 16:22 Stool Lactoferrin Latex Agglutination - Pending Laboratory Tests Range/Units 11/26/21 11/26/21 11/26/21 16:17 16:17 16:17 WBC (4.4-10.8) 10^3/uL 4.60 RBC (4.36-5.78) 10^6/uL 3.74 L Hgb (13.5-17.5) g/dL 10.5 L Hct (40.0-50.0) % 33.4 L MCV (80-95) fL 89 MCH (27.0-33.0) pg 28.1 MCHC (32.0-36.0) % 31.4 L RDW (11.8-14.1) % 16.7 H Plt Count (130-400) 10^3/uL 57 L MPV (8.0-11.0) fL 9.4 Immature Gran % 0.4 Neutrophils % 70.3 Lymphocytes % 26.7 Monocytes % 1.5 Eosinophils % 0.9 Basophils % 0.2 Nucleated RBC % (0.0-0.3) % 0.0 Absolute Neutrophils (1.2-6.7) 10^3/uL 3.23 Absolute Lymphocytes (1.2-3.4) 10^3/uL 1.23 Absolute Monocytes (0.1-0.8) 10^3/uL 0.07 L Absolute Eosinophils (0.0-0.7) 10^3/uL 0.04 Absolute Basophils (0.0-0.2) 10^3/uL 0.01 Sodium (136-145) mmol/L 135 L Potassium (3.5-5.1) mmol/L 4.2 Chloride (98-107) mmol/L 102 Carbon Dioxide (21.0-32.0) mmol/L 21.9 Anion Gap (3-11) mmol/L 11.1 H BUN (7-18) mg/dL 18 Creatinine (0.70-1.30) mg/dL 1.2 Estimated GFR/1.73 m2 (mL/min/1.73m2) 58.40 Glucose (74-106) mg/dL 115 H Calcium (8.5-10.1) mg/dL 9.0 Magnesium (1.8-2.4) mg/dL 2.3 Total Bilirubin (0.2-1.0) mg/dL 0.8 AST (15-37) U/L 42 H ALT (16-63) U/L 44 Alkaline Phosphatase (46-116) U/L 71 Total Protein (6.4-8.2) g/dL 8.1 Albumin (3.4-5.0) g/dL 2.9 L Lipase (73-393) U/L 69
[2021-11-26 19:52] VITALS: PULSE 71; RESP 18; O2SAT 99
[2021-11-26] MEDS: Ondansetron O.D.T. 4 MG TABEF, 3 TABS/BTL PO (20:03)
--- NOTE | 2021-11-28 10:14 | NUR.NOTE ---
Nursing Note: Lab called to say that the stool sample pt dropped off for cdiff was too formed to test. Riaz Quiñonez notified. Mera Coyle
== END 2021-11-26 20:11 | disposition home or self-care (01) ==
PROVIDERS: Emergency Provider Nurse Practitioner Family
DX: R11.2 Nausea with vomiting, unspecified (principal); Z79.899 Other long term (current) drug therapy
CPT/HCPCS: 80053; 83690; 87493; 87505; 96361; 96374; 99284; 81003; 83630; 83735; 85025; 99283; J2405

== ENCOUNTER 2021-11-28 14:33 | Outpatient (REF) | payer OTHER, SELFPAY ==
[2021-11-28 23:26] LABS: Campylobacter PCR Negative (Negative); Salmonella PCR Negative (Negative); Shiga Toxin PCR Negative (Negative); Shigella/Enteroinvasive Ecoli Negative (Negative)
== END 2021-11-28 14:34 | disposition home or self-care (01) ==
LOC: LBN 14:33
PROVIDERS: Visit Provider Nurse Practitioner Family
DX: R19.7 Diarrhea, unspecified (principal); R11.2 Nausea with vomiting, unspecified
CPT/HCPCS: 87329; 87493; 87505; 83630; 87177

== ENCOUNTER 2021-12-04 09:05 | Emergency (ER) | payer OTHER, SELFPAY ==
[2021-12-04 09:10] VITALS: BP 107/65; PULSE 114; RESP 16; TEMP 36.9; O2SAT 95
--- NOTE | 2021-12-04 10:54 | ED.GENADUL_ITS ---
Discharge Plan Disposition Patient Disposition: HOME Condition: Improving Discharge Details Clinical Impression: Nausea & vomiting Primary Care Provider: [facility] ED Provider: Jignesh Saleem Home Meds and New Rx's Prescriptions: New ondansetron 4 mg tablet,disintegrating 4 mg PO Q8H PRN (Reason: nausea and vomiting) Qty: 30 0RF No Action isosorbide mononitrate 30 mg Tablet Extended Release 24 Hr 30 mg PO DAILY AM metoprolol succinate 25 mg Tablet Extended Release 24 Hr 25 mg PO DAILY AM rosuvastatin 40 mg Tablet 40 mg PO DAILY prochlorperazine maleate [Compazine] 10 mg Tablet 10 mg PO PRN PRN aspirin 81 mg Tablet 81 mg PO DAILY AM ondansetron 4 mg tablet,disintegrating 4 mg PO Q6H PRN (Reason: nausea and vomiting) Qty: 14 0RF Discharge Instructions Instructions: Acute Nausea and Vomiting (ED) Additional Instructions: Please stay hydrated as best as possible consider using Pedialyte, Gatorade and/or supplementing with Ensure protein drinks. Use Zofran as prescribed. Please return to the emergency department for any signs of dehydration or worsening symptomatology. Medical Decision Making 81-year-old male currently undergoing chemotherapy for lung cancer status post partial resection, presents with nausea and vomiting over the past several days to weeks, no active vomiting currently no abdominal pain, hemodynamically stable, mild tachycardia, does have drying of oral mucosa and poor skin turgor consistent with dehydration. He is passing stool no history of abdominal surgeries. Speaking full sentences alert and oriented. Nontoxic. Consider poor p.o. intake in the setting of active cancer/chemotherapy versus viral ga stroenteritis versus foodborne illness must also consider electrolyte abnormality. Lower suspicion for intra-abdominal process such as bowel obstruction cholecystitis or appendicitis given history and physical stool sample was given on an outpatient basis awaiting results. Has recently completed course of azithromycin and amoxicillin for pneumonia and got an empiric dose of doxycycline for tick bite. Lower suspicion for C. difficile given nature of symptoms. Fluids antiemetics close reassessment p.o. challenge likely home with follow-up Patient resting comfortably no acute distress tolerating tami kaiden no vomiting great improvement of color and skin quality. Tachycardia is resolving. Likely component of dehydration. Evidence of pancytopenia consistent with patient being 1 week post most recent chemotherapy. Afebrile nontoxic. Home care instructions and return precautions given. Will be given a prescription for Zofran. Patient has an appointment to follow-up with his oncologist early next month HPI General Date/Time Provider Initiated Documentation: 12/04/21 09:38 . HPI Narrative: 81-year-old male history of lung cancer currently undergoing chemotherapy, presents with nausea vomiting and diarrhea over the past several days, poor p.o. intake. Denies fevers chills or abdominal pain denies chest pain or shortness of breath. Related Data Home Medications Medication Instructions Recorded Confirmed aspirin 81 mg tablet 81 mg PO DAILY AM 11/26/21 12/04/21 isosorbide mononitrate 30 mg 30 mg PO DAILY AM 11/26/21 12/04/21 tablet,extended release 24 hr metoprolol succinate 25 mg 25 mg PO DAILY AM 11/26/21 12/04/21 tablet,extended release 24 hr ondansetron 4 mg disintegrating 4 mg PO Q6H PRN nausea and 11/26/21 12/04/21 tablet vomiting #14 tabs prochlorperazine maleate 10 mg 10 mg PO PRN PRN 11/26/21 12/04/21 tablet (Compazine) rosuvastatin 40 mg tablet 40 mg PO DAILY 11/26/21 12/04/21 ondansetron 4 mg disintegrating 4 mg PO Q8H PRN nausea and 12/04/21 tablet vomiting #30 tabs Previous Rx's Medication Instructions Recorded ondansetron 4 mg disintegrating 4 mg PO Q6H PRN nausea and 11/26/21 tablet vomiting #14 tabs ondansetron 4 mg disintegrating 4 mg PO Q8H PRN nausea and 12/04/21 tablet vomiting #30 tabs Allergies Allergy/AdvReac Type Severity Reaction Status Date / Time No Known Allergies Allergy Unverified 12/04/21 09:14 General Stated Complaint: Nausea/Vomit/Diar MARIA FERNANDA: 3 Review of Systems Narrative: Review of Systems Constitutional: negative Eyes: negative ENT: negative Cardiovascular: negative Respiratory: negative Gastrointestinal: Nausea vomiting diarrhea : negative Musculoskeletal: negative Skin: negative Neurologic: negative Psych: negative PFSH All Active Problems (Updated 12/04/21 @ 13:07 by Jignesh Saleem MD) Nausea & vomiting (Acute) Social History Smoking/Tobacco Use Status: Former Tobacco Use Smoking risk assessment performed?: Yes Alcohol Intake: former Substance use type: does not use Do you feel safe at home: Yes Do you feel safe in your relationship?: Yes Additional Social history: lives with his spouse Exam Narrative Exam Narrative: Physical Examination General: alert, awake, cooperative, resting comfortably, no acute distress HEENT: normocephalic, atraumatic; PERRL, EOM intact, conjunctiva normal; no nasa l discharge; drying of oral mucosa Neck: supple, trachea midline; full ROM Chest: normal to inspection Respiratory: normal respiratory effort, speaking in full sentences, clear to auscultation, no wheezing, rales or rhonchi Cardiac: Tachycardia, regular rhythm, S1S2 intact, no murmurs rubs or gallops GI: abdomen soft, non-tender, non-distended; no palpable mass or hepatosplenomegaly Skin: Dry skin, poor skin turgor ;no lesions, rashes or trauma appreciated Neuro: AAOx3, normal speech, moving all extremities Psych: Appropriate mood and affect Course Vital Signs Vital signs: Vital Signs Temperature 36.9 C 12/04/21 09:10 Pulse 114 H 12/04/21 09:10 Respiratory Rate 16 12/04/21 09:10 Blood Pressure 107/65 12/04/21 09:10 Pulse Oximetry 95 12/04/21 09:10 Temperature 36.9 C 12/04/21 09:10 Temperature Source Oral 12/04/21 09:10 Pulse 114 H 12/04/21 09:10 Respiratory Rate 16 12/04/21 09:10 Respiratory Effort 12/04/21 09:10 Blood Pressure 107/65 12/04/21 09:10 Blood Pressure Position Sitting 12/04/21 09:10 Pulse Oximetry 95 12/04/21 09:10 Oxygen Delivery Method Room Air 12/04/21 09:10 Oxygen Flow Rate 0 12/04/21 09:10 Pain Level 0 12/04/21 09:10
[2021-12-04 11:02] LABS: HCT 32.7 % (40.0-50.0); HGB 10.5 g/dL (13.5-17.5); MCH 28.2 pg (27.0-33.0); MCHC 32.1 % (32.0-36.0); MCV 88 fL (80-95); MPV 10.8 fL (8.0-11.0); RBC 3.73 10^6/uL (4.36-5.78); RDW 16.7 % (11.8-14.1); RDW-SD 51.8 fL
[2021-12-04] MEDS: Ondansetron 4 MG/2 ML VIAL IVP (11:04)
[2021-12-04] MEDS: Normal Saline 1,000 ML 1000 ML IV (11:04)
[2021-12-04 11:15] LABS: ALT 36 U/L (16-63); AST 30 U/L (15-37); Absolute Eosinophil Count 0.01 10^3/uL (0.0-0.7); Absolute Lymphocyte Count 0.82 10^3/uL (1.2-3.4); Absolute Monocyte Count 0.28 10^3/uL (0.1-0.8); Alkaline Phosphatase 87 U/L (46-116); Anion Gap 12.7 mmol/L (3-11); BUN 17 mg/dL (7-18); CO2 24.3 mmol/L (21.0-32.0); CREATININE 1.2 mg/dL (0.70-1.30); Chloride 105 mmol/L (98-107); Glucose 116 mg/dL (74-106); Sodium 142 mmol/L (136-145); Total Protein 8.1 g/dL (6.4-8.2)
[2021-12-04 11:16] LABS: Anisocytosis 1+; Diff Comment Manual Differential; Macrocytosis 1+
[2021-12-04 13:26] VITALS: BP 133/73; PULSE 74; RESP 16; O2SAT 98
[2021-12-07 11:53] LABS: WBC 1.46 10^3/uL (4.4-10.8)
[2021-12-07 11:55] LABS: Platelet Count 26 10^3/uL (130-400)
[2021-12-07 11:56] LABS: Absolute Neutrophil Count 0.35 10^3/uL (1.2-6.7)
== END 2021-12-04 13:29 | disposition home or self-care (01) ==
PROVIDERS: Emergency Provider Emergency Medicine; PCP Nurse Practitioner Acute Care
DX: R11.2 Nausea with vomiting, unspecified (principal); R19.7 Diarrhea, unspecified
CPT/HCPCS: 36415; 80053; 96361; 96374; 99284; 85025; 99283; J2405

== ENCOUNTER 2021-12-12 03:03 | Outpatient (RCR) | payer OTHER, SELFPAY ==
[2021-12-12 07:25] LABS: Abs Immature Grans 0.02 10^3/uL (0.0-0.06); Absolute Basophil Count 0.01 10^3/uL (0.0-0.2); Absolute Eosinophil Count 0.01 10^3/uL (0.0-0.7); Absolute Lymphocyte Count 1.27 10^3/uL (1.2-3.4); Absolute Monocyte Count 0.63 10^3/uL (0.1-0.8); Absolute Neutrophil Count 3.54 10^3/uL (1.2-6.7); Basophils % 0.2; Eosinophils % 0.2; HCT 33.1 % (40.0-50.0); HGB 10.3 g/dL (13.5-17.5); Immature Grans % 0.4; Lymphocytes % 23.2; MCH 27.7 pg (27.0-33.0); MCHC 31.1 % (32.0-36.0); MCV 89 fL (80-95); MPV 10.1 fL (8.0-11.0); Monocytes % 11.5; Neutrophils % 64.5; RBC 3.72 10^6/uL (4.36-5.78); RDW 17.9 % (11.8-14.1); RDW-SD 56.5 fL; WBC 5.48 10^3/uL (4.4-10.8)
[2021-12-12 07:32] LABS: Platelet Count 53 10^3/uL (130-400)
[2021-12-12 07:47] LABS: ALT 29 U/L (16-63); AST 27 U/L (15-37); Albumin 2.7 g/dL (3.4-5.0); Alkaline Phosphatase 83 U/L (46-116); Anion Gap 9.8 mmol/L (3-11); BUN 8 mg/dL (7-18); Bilirubin, Total 0.8 mg/dL (0.2-1.0); CO2 26.2 mmol/L (21.0-32.0); CREATININE 1.3 mg/dL (0.70-1.30); Calcium 9.3 mg/dL (8.5-10.1); Chloride 99 mmol/L (98-107); Estimated GFR 53.25 (mL/min/1.73m2); FREE T4 1.23 ng/dL (0.76-1.46); Glucose 166 mg/dL (74-106); Potassium 3.9 mmol/L (3.5-5.1); Sodium 135 mmol/L (136-145); TSH 0.56 uIU/mL (0.36-3.74); Total Protein 7.7 g/dL (6.4-8.2)
== END 2022-01-05 23:59 | disposition home or self-care (01) ==
LOC: INF 03:03
PROVIDERS: PCP Nurse Practitioner Acute Care; Visit Provider Internal Medicine Medical Oncology
DX: C34.92 Malignant neoplasm of unspecified part of left bronchus or lung (principal); C78.2 Secondary malignant neoplasm of pleura
CPT/HCPCS: 36415; 80053; 84439; 84443; 85025